=== PATIENT | female | born 1975 | race Caucasian/White ===

== ENCOUNTER 2018-10-03 13:09 | Emergency (ER) | payer SELFPAY ==
[2018-10-03] MEDS ORDERED: predniSONE 20 MG TAB ONE (13:31)
[2018-10-03] MEDS ORDERED: hydrOXYzine 25 MG TAB ONE (13:31)
== END 2018-10-03 13:40 | disposition home or self-care (01) ==
LOC: BURERS 13:09
DX: L23.7 Allergic contact dermatitis due to plants, except food (principal); F17.210 Nicotine dependence, cigarettes, uncomplicated
CPT/HCPCS: 99282; J7512

== ENCOUNTER 2018-12-05 02:30 | Emergency (ER) | payer SELFPAY | END 2018-12-05 02:55 | disposition home or self-care (01) | LOC: BURERS 02:30 | DX: R50.9 Fever, unspecified (principal); F17.210 Nicotine dependence, cigarettes, uncomplicated | CPT/HCPCS: 99283 ==

== ENCOUNTER 2020-06-06 06:40 | Emergency (ER) | payer SELFPAY ==
[2020-06-06 07:35] LABS: ALT (SGPT) 16 U/L (8-55); AST (SGOT) 16 U/L (5-34); Albumin 3.9 g/dL (3.5-5.0); Alkaline Phosphatase 93 U/L (40-110); Anion Gap 13 mmol/L (10-20); BUN (Urea Nitrogen) 12 mg/dL (7.0-18.7); Bilirubin, Total 0.4 mg/dL (0.2-1.2); Calc. Creatinine Clearance 0 mL/min (70-130); Calcium 8.9 mg/dL (7.8-10.44); Carbon Dioxide 23 mmol/L (22-29); Chloride 106 mmol/L (98-107); Globulin 3.3 g/dL (2.4-3.5); Glucose 104 mg/dL (70-105); Potassium 3.9 mmol/L (3.5-5.1); Protein, Total 7.2 g/dL (6.0-8.3); Sodium 138 mmol/L (136-145)
[2020-06-06 07:38] LABS: Band 4 % (5-11); Hemoglobin 14.9 g/dL (12.0-16.0); Lymphocytes 9 % (21-51); MDiff Complete? YES; Mean Corpuscular HGB CONC 32.8 g/dL (32.0-36.0); Mean Corpuscular Hemoglobin 29.5 pg (27.0-31.0); Monocytes 4 % (0-10); Neutrophil 83 % (42-75); Platelet Count 392 thou/uL (130-400); RBC Distribution Width 12.7 % (11.5-14.5); Red Blood Cell (RBC) Count 5.06 mill/uL (4.20-5.40); Toxic Granulation SLIGHT; Vacuoles SLIGHT; White Blood Cell (WBC) Count 17.7 thou/uL (4.8-10.8)
[2020-06-06 07:40] LABS: BHCG - Serum Negative (NEGATIVE); Pregs Control Background? CLEAR/WHITE (CLR/WHITE); Pregs Control Bar Appear? YES (CONTROL BAR)
[2020-06-06 10:51] LABS: Lipase 14 U/L (8-78)
== END 2020-06-06 08:45 | disposition short-term general hospital (02) ==
LOC: BURERS 06:40
DX: R10.13 Epigastric pain (principal); R11.2 Nausea with vomiting, unspecified; F17.210 Nicotine dependence, cigarettes, uncomplicated
CPT/HCPCS: 36415; 80053; 83690; 84703; 85025; 99284